=== PATIENT | male | born 1965 | race Caucasian/White ===

== ENCOUNTER → 2020-01-02 | Outpatient (CLI) | payer BC ==
[~2020-01-02] MED LIST: ANTIVERT25 MG PO; AZITHROMYCIN 2250 MG PO; CEFPODOXIME PR200 M1 PO; FLONASE 0.05%50 MCG NASAL; KEFLEX500 MG PO; LISINOPRIL; NORCO 5-325 TA1 EACH PO; PREDNISONE 10 M10 MG PO; PRILOSEC; PRILOSEC 20 MG20 MG PO; PRINIVIL20 MG PO
--- NOTE | 2020-01-02 17:13 | EXE ---
[place] [address] STRESS ECHOCARDIOGRAM Name: ODALYSLYNETTE SYKES Room: [facility]#: [id number] Admission: 01/02/20 Attend Phys: Chucky aEst, Discharge: Date of : 61 Date of Service: 01/02/20 1712 Report #: [id number] THIS REPORT FOR: cc: Minal Salas Samantha RNP Blick, David R. MD [facility] ~ APPROVED REPORT Study performed: 01/02/2020 15:04:33 Exam: Stress Echocardiogram Indication: Chest pain , Dizziness Patient Location: Out-Patient Stress Nurse: Heather Lopez RN Supervising Physician: Hernan Bey MD Ht: 6 ft 0 in HR: 72 bpm BP: 146/98 mmHg Medical History Allergies: No known drug allergies Cardiac Risk Factors: Age,, HTN, FHX of CAD Procedure The patient underwent an Exercise Stress Test using the Alden Protocol. Blood pressure, heart rate, and EKG were monitored. An Echocardiogram was performed by pathology lab technician in four stages in quad fashion. At peak stress, four selected images were obtained and placed side by side with resting images for comparison. Stress Test Details Stress Test: Exercise stress testing was performed using a Alden protocol. HR Resting HR: 72 bpm Max Heart Rate (APMHR): 164 bpm Max HR Achieved: 162 bpm Target HR (85% APMHR): 139 bpm % of APMHR: 98 Recovery HR: 95 bpm HR response to stress: Normal HR response to stress BP Resting BP: 146/98 mmHg Max BP: 215/104 mmHg Recovery BP: 161/89 [place] [address] STRESS ECHOCARDIOGRAM Name: LYNETTE MORROW Room: [facility]#: [id number] Admission: 01/02/20 Attend Phys: Chucky East, Discharge: Date of : 61 Date of Service: 01/02/20 1712 Report #: [id number] BP response to stress: Abnormal hypertensive response to stress. ECG Resting ECG: Sinus Rhythm Stress ECG: Sinus Rhythm, nonspecific ST-T abnormalities ST Change: Upsloping ST depression Maximum ST Deviation: 0.5 mm Arrhythmia: VPC's Recovery ECG: Sinus Rhythm, nonspecific ST-T abnormalities Recovery ST Change: Upsloping ST depression Recovery ST Deviation: 0.5 mm Recovery Arrhythmia: None Clinical Reason for Termination: Completed protocol Exercise duration: 10 min 16 sec Highest Stage Achieved: Stage 4: 4.2 mph at 16% grade. Exercise capacity: 11.62 METs Pre-Stress Echo The resting Echocardiogram showed normal left ventricular contractility with an estimated Ejection Fraction of about 55-60%. Post-Stress Echo The stress Echocardiogram showed normal left ventricular contractility with an estimated Ejection Fraction of about >70%. Compared to rest, there were no stress-induced wall motion abnormalities. Conclusion Clinical Response: Non-ischemic Exercise Capacity: Average Stress ECG Response: Equivocal Stress Echo Images: Non-ischemic low risk stress echo for predicting future cardiac events Other Information Study Quality: [place] [address] STRESS ECHOCARDIOGRAM Name: LYNETTE MORROW Room: [facility]#: [id number] Admission: 01/02/20 Attend Phys: Chucky East, Discharge: Date of : 61 Date of Service: 01/02/201711 Report #: [id number] <Conclusion> low risk stress echo for predicting future cardiac events <ELECTRONICALLY SIGNED> By: Hernan Bey MD, FACC 01/02/201711 11 11 Hernan Bey MD, FACC /INF
== END ==
LOC: M.CRD 14:37
PROVIDERS: ATTEND Internal Medicine Cardiovascular Disease
DX: R07.2 Precordial pain (principal)

== ENCOUNTER → 2020-10-07 | Outpatient (CLI) | payer BC ==
--- NOTE | 2020-10-13 22:18 | PF ---
[address] [address] PULMONARY FUNCTION REPORT Name: ODALYSLYNETTE SYKES Room: [facility].#: [id number] Admission: 10/07/20 Attend Phys: Minal Salas, Discharge: Date of : 61 Report #: [id number] THIS REPORT FOR: cc: Minal Salas,Abel Godwin MD ~ DATE OF VISIT: 10/07/2020 The FEV1/FVC ratio is normal at 80% with an FVC mildly decreased to 76%. The FEV1 is normal, also at 80%. FEF 25-75 is normal at 94%. After the administration of a bronchodilator, there is no significant increase in any of these values. The patient's post-bronchodilator FEV1 is 3.41 L. The total lung capacity is mildly decreased to 78%. The residual volume is decreased to 73%. The DLCO is adjusted for hemoglobin that is decreased to 60%. IMPRESSION: 1. There is mild restriction as noted. The total lung capacity is mildly decreased to 78%. 2. There is also a mild restrictive pattern on spirometry. If in addition to mild restriction, mild obstruction was to be present, then it may be masked by restriction. 3. The DLCO is adjusted for hemoglobin that is decreased to 60%. <ELECTRONICALLY SIGNED> By: Abel Monaco MD 10/13/20 2218 [id number] MD kalpesh Mc
== END ==
LOC: M.PUL 08:49
PROVIDERS: ATTEND Nurse Practitioner Family
DX: R94.2 Abnormal results of pulmonary function studies (principal); R06.02 Shortness of breath